=== PATIENT | female | born 1945 | race Hispanic/Latino ===

== ENCOUNTER 2021-11-03 16:06 | Emergency (ER) | payer MEDICARE ==
[2021-11-03] MEDS ORDERED: KETOROLAC 30 MG/1 ML INJ IM ONE (17:22)
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
--- NOTE | 2021-11-03 18:03 | XRay Report ---
LUMBAR SPINE 3 VIEWS INDICATION: Pain in lumbar spine. COMPARISON: No relevant prior imaging study available. FINDINGS: VERTEBRAE: The bones are demineralized. There is mild levoscoliosis with grade 1 anterolisthesis at L 4-L5. No acute fracture. DISC SPACES: Multilevel moderate/severe discogenic degenerative changes are most significant at L1-L2 . FACET JOINTS: There is multilevel facet arthropathy. SOFT TISSUES: Diffuse atherosclerosis is noted without other significant abnormalities. ADDITIONAL FINDINGS: No additional significant findings. IMPRESSION: 1. No acute findings. 2. Moderate/severe lumbar spondylosis with additional findings as above. Signer Name: Jimi Li MD Signed: 11/03/2021 5:59 PM Workstation Name: [id number]
[2021-11-03 18:49] VITALS: BP 176/58
== END 2021-11-03 18:49 | disposition home or self-care (01) ==
LOC: ED 16:06
DX: M54.9 Dorsalgia, unspecified (principal); V49.9XXA Car occupant (driver) (passenger) injured in unspecified traffic accident, initial encounter; Y93.89 Activity, other specified; Y92.89 Other specified places as the place of occurrence of the external cause; Y99.8 Other external cause status
CPT/HCPCS: 72100; 96372; 99283; J1885